=== PATIENT | female | born 1990 | race Two or more races ===

== ENCOUNTER 2021-03-16 05:10 | Inpatient (IN) | payer OTHER ==
[~2021-03-16] VITALS: Ht 160 cm; Wt 81.6 kg
[2021-03-16] MEDS ORDERED: PRENATAL + DHA1 EAC1 (06:04)
[2021-03-16] MEDS ORDERED: IRON236 MG (06:05)
== END 2021-03-18 16:06 | disposition home or self-care (01) | DRG 807 ==
LOC: OB/GYN 05:10 → LDR 05:10 → OB/GYN 11:06
PROVIDERS: ADMIT Obstetrics & Gynecology; ATTEND Obstetrics & Gynecology
PROC: 10E0XZZ Delivery of Products of Conception, External Approach (ICD-10-PCS; principal; 2021-03-16)
PROC: 10907ZC Drainage of Amniotic Fluid, Therapeutic from Products of Conception, Via Natural or Artificial Opening (ICD-10-PCS; 2021-03-16)
PROC: 4A1HXFZ Monitoring of Products of Conception, Cardiac Rhythm, External Approach (ICD-10-PCS; 2021-03-16)
DX: O99.824 Streptococcus B carrier state complicating childbirth (principal); Z37.0 Single live birth; Z3A.39 39 weeks gestation of pregnancy